=== PATIENT | male | born 1985 | race Caucasian/White ===

== ENCOUNTER 2020-07-03 18:44 | Observation (INO) | payer OTHER ==
[~2020-07-03] VITALS: Ht 198.1 cm; Wt 151.2 kg
[2020-07-03 19:36] LABS: Alanine Aminotransfer (ALT/SGP 35 U/L (12-78); Albumin, Blood 4.3 g/dL (3.4-5.0); Albumin/Globulin Ratio 1.2 (0.8-1.8); Alk Phos 76 U/L (50-136); Anion Gap 9 mmol/L (6-16); Aspartate Aminotrans (AST/SGOT 25 U/L (12-37); Bilirubin, Total 0.7 mg/dL (0.1-1.0); Blood Urea Nitrogen 17 mg/dL (8-24); Bun/Creatinine Ratio 18.4 (12.0-20.0); CO2, Blood 23 mmol/L (21-32); Calcium, Blood 9.1 mg/dL (8.5-10.1); Chloride, Blood 105 mmol/L (98-108); Creatinine, Blood 0.93 mg/dL (0.60-1.20); Globulin, Blood 3.5 g/dL (2.2-4.0); Glomerular Filtration Rate >60 (60-); Glucose, Blood 92 mg/dL (70-99); Potassium, Blood 3.2 mmol/L (3.5-5.5); Sodium, Blood 137 mmol/L (136-145); Total Protein, Blood 7.8 g/dL (6.4-8.2); Troponin I 0.041 ng/mL (0.000-0.040)
[2020-07-03 19:48] LABS: BASOPHILS ABSOLUTE AUTO 0.05 K/mm3 (0.00-0.23); BASOPHILS PERCENT AUTO 0 % (0-2); EOSINOPHILS PERCENT AUTO 1 % (0-6); Hematocrit 44.9 % (37.0-53.0); Hemoglobin 15.8 g/dL (13.5-17.5); IMMATURE GRAN ABSOLUTE AUTO 0.09 K/mm3 (0.00-0.10); IMMATURE GRAN PERCENT AUTO 1 % (0-1); LYMPHOCYTES ABSOLUTE AUTO 4.02 K/mm3 (0.84-5.20); LYMPHOCYTES PERCENT AUTO 30 % (21-46); MONOCYTES ABSOLUTE AUTO 1.03 K/mm3 (0.16-1.47); MONOCYTES PERCENT AUTO 8 % (4-13); Mean Corpuscular HGB 31.3 pg (26.0-34.0); Mean Corpuscular HGB Conc 35.2 g/dL (31.5-36.5); Mean Corpuscular Volume 89 fL (80-100); Mean Platelet Volume 10.4 fL (9.1-12.4); NEUTROPHILS ABSOLUTE AUTO 8.05 K/mm3 (1.96-9.15); NEUTROPHILS PERCENT AUTO 60 % (41-73); Platelet Count 233 K/mm3 (150-400); RDW Coefficient Variation 12.1 % (11.7-14.2); RDW Standard Deviation 39.5 fL (35.1-46.3); Red Blood Cell Count 5.05 M/mm3 (4.30-5.90); White Blood Cell Count 13.34 K/mm3 (4.00-11.30)
--- NOTE | 2020-07-04 01:40 | NUR ---
REPORT RECIEVED AND PT T/F TO ROOM 341 AT 0124. HE'S A/OX4, WAS ORIENTED TO ROOM AND CALL SYSTEM AND TRANSFERRED SELF INDEPENDENTLY W/O DIFFICULTY FROM GURNEY TO BED. HE IS AWARE TO CALL FOR ANY CONCERNS OR C/O CARDIAC DISTRESS. STAFF REVIEWED THESE SYMPTOMS. PT DOESN'T TAKE ANY HOME MEDS AND AGREED TO FLU VACCINE. CP IS DESCRIBED "PRESSURE OR SQUEEZE" THAT IS "BARELY THERE" CURRENTLY BUT "COMES AND GOES". HE KNOWS TO ALERT STAFF IF PAIN WORSENS OR SUSTAINS OR DEVELOPMENT OF ANY NEW SYMPTOMS. CALL LIGHT IN REACH AND PT RESTING COMFORTABLY AT THIS TIME.
--- NOTE | 2020-07-04 02:45 | NUR ---
GI COCKTAIL: PT REPORTS MILD CP (2/) THAT HE DOESN'T FEEL IS "BAD ENOUGH" FOR PRN FENTANYL BUT IS DESCRIBED TO BE PRESSURE/SQUEEZE THAT "COMES AND GOES". PT ADMITS TO HAVING EXPERIENCED SPONTANEOUS ABDO DISCOMFORT W/SEVERE PAIN X2 WEEKS AGO OF UNKNOWN ORIGIN. HE ALSO STATED HE WAS DX'D "SEVERAL YEARS AGO W/THC INDUCED HYPEREMESIS" WHEN HE CHRONICALLY USED MARIJUANA BUT SAYS HE "HASN'T EXPERIENCED ANYTHING LIKE IT SINCE MAKING MAJOR LIFESTYLE CHANGES AND LOSING 100 LBS". SINCE PT FELT FENTANYL WAS NOT NEEDED, GI COCKTAIL WAS WAS PROVIDED PRN FOR POSSIBLE CP RELIEF IN THE EVENT IT WAS GI INDUCED. WILL MONITOR FOR EFFECT.
[2020-07-04 02:59] LABS: BASOPHILS ABSOLUTE AUTO 0.04 K/mm3 (0.00-0.23); BASOPHILS PERCENT AUTO 0 % (0-2); EOSINOPHILS PERCENT AUTO 1 % (0-6); Hematocrit 41.1 % (37.0-53.0); Hemoglobin 14.7 g/dL (13.5-17.5); IMMATURE GRAN ABSOLUTE AUTO 0.06 K/mm3 (0.00-0.10); IMMATURE GRAN PERCENT AUTO 1 % (0-1); LYMPHOCYTES ABSOLUTE AUTO 3.75 K/mm3 (0.84-5.20); LYMPHOCYTES PERCENT AUTO 31 % (21-46); MONOCYTES ABSOLUTE AUTO 1.19 K/mm3 (0.16-1.47); MONOCYTES PERCENT AUTO 10 % (4-13); Mean Corpuscular HGB 32.2 pg (26.0-34.0); Mean Corpuscular HGB Conc 35.8 g/dL (31.5-36.5); Mean Corpuscular Volume 90 fL (80-100); Mean Platelet Volume 9.5 fL (9.1-12.4); NEUTROPHILS ABSOLUTE AUTO 7.01 K/mm3 (1.96-9.15); NEUTROPHILS PERCENT AUTO 58 % (41-73); Platelet Count 229 K/mm3 (150-400); RDW Coefficient Variation 12.2 % (11.7-14.2); RDW Standard Deviation 39.7 fL (35.1-46.3); Red Blood Cell Count 4.57 M/mm3 (4.30-5.90); White Blood Cell Count 12.15 K/mm3 (4.00-11.30)
--- NOTE | 2020-07-04 03:15 | NUR ---
PT REPORTS NOT NOTICING ANY EFFECT FROM GI COCKTAIL. HE SAID CP ISN'T WORSE OR BETTER BUT JUST CONT'S PREVIOUSLY DESCRIBED. HE CONT'S TO DENY NEEDING PRN FENTANYL AND SAYS IT'S JUST "OCCASIONALLY THERE". WCTM CLOSELY FOR CHANGES OR WORSENING. ACCOUNT LIAISON HOSPICE TECH STATES PT IS S.CASSIE-NSR AT 50'S-70'S BPM.
[2020-07-04 03:18] LABS: Alanine Aminotransfer (ALT/SGP 30 U/L (12-78); Albumin, Blood 3.6 g/dL (3.4-5.0); Albumin/Globulin Ratio 1.2 (0.8-1.8); Alk Phos 70 U/L (50-136); Anion Gap 6 mmol/L (6-16); Aspartate Aminotrans (AST/SGOT 22 U/L (12-37); Blood Urea Nitrogen 14 mg/dL (8-24); Bun/Creatinine Ratio 14.9 (12.0-20.0); CO2, Blood 26 mmol/L (21-32); CPK Creatine Kinase 203 U/L (39-308); Calcium, Blood 8.7 mg/dL (8.5-10.1); Chloride, Blood 108 mmol/L (98-108); Creatinine, Blood 0.94 mg/dL (0.60-1.20); Globulin, Blood 3.1 g/dL (2.2-4.0); Glomerular Filtration Rate >60 (60-); Glucose, Blood 88 mg/dL (70-99); Potassium, Blood 3.7 mmol/L (3.5-5.5); Sodium, Blood 140 mmol/L (136-145); Total Protein, Blood 6.7 g/dL (6.4-8.2)
--- NOTE | 2020-07-04 04:10 | NUR ---
BRADYCARDIA: PCU STOCK SUPERVISOR ALERTED RN THAT PT'S HR BEGAN TRENDING DOWNWARD, AVERAGING 50'S BPM BUT LOW 47 BPM (MAINTAINING THIS FOR A COUPLE MINUTES AT TIME) AND W/A HIGH OF 74 BPM. PT DENIES ANY ACUTE S/S DISTRESS OR WORSENING IN CP. HE CONT'S TO REPORT MILD CP THAT HE DESCRIBES PRESSURE/SQUEEZING SENSATION THAT WAXES AND WANES BUT IS NOT BAD ENOUGH TO REQUIRE PRN PAIN MEDS. MD MADE AWARE AND NO NEW ORDERS RECIEVED AT THIS TIME.
--- NOTE | 2020-07-04 05:23 | NUR ---
PCU TECHNICAL LABORATORY ASST ALERTED RN THAT PT'S HR CONT'S TO TREND DOWNWARD TO 42 BPM NOW AND HAS NEW T-WAVE CHANGES. ALERTED AND NEW ORDERS RECIEVED TO T/F PT TO PCU. DIRECTOR CARDIAC (DENILSON LAINEZ) AND RN ARMED SECURITY OFFICER (TANA BROWNE) MADE AWARE.
--- NOTE | 2020-07-04 05:53 | NUR ---
PCU T/F ON HOLD. WAITING ON BED AVAILIBILITY. PT STATUS REMAINS UNCHANGED AND HE DENIES AND ACUTE DISTRESS OR CHANGES. DIRECTOR GENERAL AWARE TO KEEP RN UPDATED TO ANY CHANGES OR WORSENING. HE'S CURRENTLY S.CASSIE W/HR 46 BPM.
--- NOTE | 2020-07-04 06:20 | NUR ---
SUMMARY: PT A/OX4, INDEPENDENT IN ROOM AND CALLS APPROPRIATELY FOR ASSIST. HE'S DENIES S/S CARDIAC DISTRESS OTHER THAN VERY MILD CP DESCRIBED TO BE PRESSURE/SQUEEZING THAT IS INTERMITTENT. HE DENIED NEEDING FENTANYL PRN BUT WE TRIALED GI COCKTAIL W/O ANY NOTICEABLE EFFECT. MAIN ISSUE WAS PT BECOME BRADYCARDIC THIS SHIFT W/HR GRADUALLY TRENDING DOWNWARD TO LOW 40'S AND SUSTAINING. HE WAS S.CASSIE ON TELEMETRY BUT MEDICAL RECORDS AUDITOR ALSO ALERTED STAFF OF NEW T-WAVE CHANGES. UPDATED T/O NOCTE REGARDING RATE AND RHYTHM CHANGES W/PCU T/F ORDERS RECIEVED. PT AWARE OF PLAN AND DENIED FURHTER Q'S OR CONCERNS. HE HAD FLU VAC UPON ARRIVAL AND LOVENOX AND ASA IN ER. IV IS SL. ECHO RX'D TODAY. NO ACUTE FINDINGS PER IMAGING COMPLETED IN ER. ALL VSS OTHER THAN BRADYCARDIA. PT T/F PENDING, WCTM AND REPORT TO SECURITY OFFICERS AND GUARDS WHEN ROOM IS AVAILABLE.
--- NOTE | 2020-07-04 06:35 | NUR ---
REPORT PROVIDED TO ROSANGELA SIDDIQUI (MANAGER CARD) AT 0635. PLAN TO T/F PT WHEN ROOM PCU 10 IS CLEAN. PT AWARE OF PLAN AND AGREEABLE. HE'S RESTING IN BED W/O S/S DISTRESS.
[2020-07-04 09:25] LABS: U Amphetamine Screen Not Detected; U Barbituate Screen DETECTED; U Benzodiazapine Screen Not Detected; U Buprenorphine Screen Not Detected; U Cannabinoids Screen DETECTED; U Cocaine Screen Not Detected; U Methadone Screen Not Detected; U Methamphetamine Screen Not Detected; U Opiates Screen Not Detected; U Oxycodone Screen Not Detected; U Phencyclidine Screen Not Detected; U Propoxyphene Screen Not Detected
[2020-07-04 11:22] LABS: CPK Creatine Kinase 202 U/L (39-308)
--- NOTE | 2020-07-04 12:55 | NUR ---
Echocardiogram performed using 0.60ml of Definity contrast.
[2020-07-04 13:09] LABS: CHOL/HDL RATIO 3.6; Cholesterol 166 mg/dL (50-200); HDL Cholesterol 46 mg/dL (>39); Low Density Lipoprotein Chol 93 mg/dL (0-110); Triglycerides 134 mg/dL (30-140); Very Low Density Lipoprot Chol 26 mg/dL (6-28)
--- NOTE | 2020-07-04 17:52 | NUR ---
PT SUMMARY: NO ACUTE CHANGE FOR THE SHIFT, PT DENIES CHEST PAIN/PRESSURE SINCE TRANSFER, PT HAS BEEN INDEPENDENT IN THE ROOM, VITALS STABLE AFEBRILE. TROPONIN TRENDS UP TO 0.047, STRESS TEST ORDER FIRST PORTION/RESTING WAS DONE THIS AFTERNOON, PT TO BE NPO AT BREAKFAST IN AM FOR THE SECOND PORTION. NO OTHER ISSUES ENCOUNTERED FOR THE SHIFT, ABLE TO MAKE NEEDS KNOWN. WILL MONITOR UNTIL END OF SHIFT
--- NOTE | 2020-07-05 06:32 | NUR ---
SHIFT SUMMARY PATIENT PLEASENT AND COOPERATIVE THROUGHOUT THE NIGHT. PATIENT INDEPENDENT IN THE ROOM. PATIENT APPEARED TO SLEEP WELL THROUGHOUT THE NIGHT. PATIENT DENIED HAVING ANY CHEST PAIN LAST NIGHT. VITAL SIGNS CHARTED. WILL CONTINUE CURRENT PLAN OF CARE.
--- NOTE | 2020-07-05 16:36 | NUR ---
NO ACUTE EVENTS THIS SHIFT, VSS. PATIENT AND PATIENT'S SPOUSE PROVIDED DISCHARGE INFO REGARDING FOLLOW UP PLANS AND REASONS TO RETURN TO THE HOSPITAL. PATIENT VERBALIZED UNDERSTANDING, NO SIGNS OF ACUTE DISTRESS AT THIS TIME.
== END 2020-07-05 16:34 | disposition home or self-care (01) ==
LOC: ER 18:44 → ERHOLD 18:45 → PCU 18:45 → MEDS 07-04 01:21 → PCU 07-04 07:20
PROVIDERS: Family Medicine; Physician Assistant; ADMIT Internal Medicine
DX: R07.9 Chest pain, unspecified (principal); R77.8 Other specified abnormalities of plasma proteins; R94.31 Abnormal electrocardiogram [ECG] [EKG]; I10 Essential (primary) hypertension; F12.90 Cannabis use, unspecified, uncomplicated; Z23 Encounter for immunization
CPT/HCPCS: 36415; 71046; 71260; 78452; 80053; 80061; 82550; 83036; 83690; 84484; 85025; 93005; 93010; 93017; 96372; 96374-59; 96375-59; 99285-25; A9270; A9500; C8929; G0008; G0378; J0706; J1650; J2405; J2785; J3010; Q2038; Q9957; Q9967

== ENCOUNTER → 2021-01-01 | Outpatient (CLI) | payer OTHER ==
[2021-01-01 16:01] LABS: Anion Gap 6 mmol/L (6-16); Blood Urea Nitrogen 24 mg/dL (8-24); Bun/Creatinine Ratio 27.1 (12.0-20.0); CO2, Blood 25 mmol/L (21-32); Calcium, Blood 8.5 mg/dL (8.5-10.1); Chloride, Blood 109 mmol/L (98-108); Creatinine, Blood 0.89 mg/dL (0.60-1.20); Glomerular Filtration Rate >60 (60-); Glucose, Blood 90 mg/dL (70-99); Potassium, Blood 4.1 mmol/L (3.5-5.5); Sodium, Blood 140 mmol/L (136-145); Uric Acid, Blood 6.4 mg/dL (3.5-7.2)
== END | disposition home or self-care (01) ==
LOC: LAB SHORT 10:56 → LAB 10:56
PROVIDERS: Physician Assistant
DX: M79.672 Pain in left foot (principal)
CPT/HCPCS: 80048; 84550

== ENCOUNTER 2021-11-22 19:07 | Emergency (ER) | payer OTHER ==
[~2021-11-22] VITALS: Ht 198.1 cm; Wt 134.7 kg
== END 2021-11-22 21:18 | disposition home or self-care (01) ==
LOC: ER 19:07
DX: R11.2 Nausea with vomiting, unspecified (principal)
CPT/HCPCS: 96374; 96375; 99283-25; J2405; J2765; J7030

== ENCOUNTER 2023-07-17 10:04 | Day surgery (SDC) | payer OTHER ==
[2023-07-17] VITALS (10 sets, daily range): BP systolic 104–134; BP diastolic 65–83
[~2023-07-17] VITALS: Ht 198.1 cm; Wt 116.4 kg
[~2023-07-17 10:04] MED LIST: CREATINE100 GM PO; MULVITA PO; OZEMPIC1 MG/0.72 SC; [UNRECOGNIZED DRUG - REMARK] PO
[2023-07-17] MEDS ORDERED: CeFAZolin Sodium 2,000 MG in NS 50 ML IV SCH (10:05)
[2023-07-17] MEDS ORDERED: Lactated Ringer's 1,000 ML IV SCH (10:05)
[2023-07-17] MEDS ORDERED: Midazolam HCl 1MG / ML 2ML Vial IV PRN (10:20)
[2023-07-17] MEDS ORDERED: FentaNYL Citrate 50 MCG/ML 2 ML Injection ONE ×2 (10:21→15:05)
[2023-07-17] MEDS ORDERED: Sugammadex Sodium 200 MG/2ML SDV (100 MG/ML) ONE (10:21)
[2023-07-17] MEDS ORDERED: propofoL 20 ML IV ONE ×2 (10:21→12:59)
[2023-07-17] MEDS ORDERED: Ondansetron HCl 2 MG / ML 2ML Vial ONE (10:25)
[2023-07-17] MEDS ORDERED: Rocuronium Bromide 10 MG/ML 5ML Injection IV ONE ×2 (10:25→13:36)
[2023-07-17] MEDS ORDERED: Dexamethasone Sod Phos 10 MG/ML 1ML VIAL ONE (10:25)
[2023-07-17] MEDS ORDERED: Lidocaine HCl 1% 5 ML SYR INJ ONE (10:25)
[2023-07-17] MEDS ORDERED: Ketorolac Tromethamine 30mg Vial ONE (10:25)
[2023-07-17] MEDS ORDERED: [UNRECOGNIZED DRUG - OTHER] PO (10:33)
--- NOTE | 2023-07-17 11:01 | NUR ---
Ambulatory in Day Surgery History, Chart, Medications and Allergies reviewed before start of procedure. Pre-Op teaching done. Pt verbalizes understanding. Patient States Post-Procedure ride home has been arranged.
[2023-07-17] MEDS ORDERED: Bupivacaine 0.5% HCl 5 MG/ML 30MLVIAL ONE (12:43)
[2023-07-17] MEDS ORDERED: OxyCODONE 5 mg/Acetamin 325 mg TABLET PO PRN (15:20)
--- NOTE | 2023-07-17 16:12 | NUR ---
Discharge instructions reviewed with patient. Patient verbalizes understanding. Copy given to patient to take home. Prescription given to pt's team cdl driver. Patient States Post-Procedure ride home has been arranged. Discharged via wheelchair to private car for ride home.
== END 2023-07-17 16:05 | disposition home or self-care (01) ==
LOC: ORSCMMR 10:04 → ORD 12:30 → ORSCMMR 12:30
PROVIDERS: Surgery
PROC: 8E0W4CZ Robotic Assisted Procedure of Trunk Region, Percutaneous Endoscopic Approach (ICD-10-PCS; principal; 2023-07-17 11:30)
PROC: 0YU64JZ Supplement Left Inguinal Region with Synthetic Substitute, Percutaneous Endoscopic Approach (ICD-10-PCS; principal; 2023-07-17 11:30)
DX: K40.90 Unilateral inguinal hernia, without obstruction or gangrene, not specified as recurrent (principal); D17.6 Benign lipomatous neoplasm of spermatic cord; Z93.1 Gastrostomy status; Z79.899 Other long term (current) drug therapy
CPT/HCPCS: A9270; C1781; J0690; J1100; J1885; J2250; J2405; J2704; J3010; J7120